=== PATIENT | female | born 1990 | race Hispanic/Latino ===

== ENCOUNTER 2021-12-02 01:35 | Emergency (ER) | payer OTHER ==
[~2021-12-02] VITALS: Ht 167.6 cm; Wt 85.7 kg
[2021-12-02] MEDS ORDERED: IBUPROFEN 600 MG TAB PO STA (01:48)
[2021-12-02] MEDS ORDERED: IBUPROFEN 600 MG TAB ONE (02:07)
[2021-12-02] MEDS ORDERED: NAPROXEN250 MG PO (02:13)
== END 2021-12-02 02:20 | disposition home or self-care (01) ==
LOC: ER 01:37
DX: M25.512 Pain in left shoulder (principal); M54.2 Cervicalgia; M54.50 Low back pain, unspecified; V43.62XA Car passenger injured in collision with other type car in traffic accident, initial encounter; Y92.488 Other paved roadways as the place of occurrence of the external cause
CPT/HCPCS: 99282